=== PATIENT | male | born 1960 | race Caucasian/White ===

== ENCOUNTER → 2025-06-28 | Outpatient (CLI) | payer MEDICARE, BC, SELFPAY ==
--- NOTE | 2025-06-28 08:00 | XR_ITS ---
Examination: CT chest, without intravenous contrast. Sagittal and coronal 2-D reconstructions. Exam date and time: June 28, 2025 0746 hours INDICATIONS: Coughing shortness of breath beginning 2 years ago, history Covid infection, history coccidiomycosis CTDI:vol (mGy) 16.9 DLP: (mGycm) 695 Technique: Multiple 3.0 mm axial sections of the chest to been obtained. Bone and lung density settings are obtained. Sagittal and coronal 2-D reconstructions have been obtained. Low dose protocols were performed. One or more of the following dose reduction techniques were used; automated exposure control, adjustment of the mA and/or KV according to patient size, use of iterative reconstruction technique. Findings: Thoracic aortic calcification no aneurysmal dilatation Enlargement main pulmonary artery segment 38 mm Prominent calcification left main left anterior descending left circumflex right coronary arteries Moderate enlargement cardiac contour Vascular congestion 5 mm pulmonary nodule right upper lobe Consolidation left base consistent with pneumonia Small bilateral pleural effusions Liver is mildly irregular in contour Trace ascites Spleen is not enlarged No pancreatic mass Moderate thoracic spondylosis IMPRESSION: Pulmonary artery hypertension pattern Heavy calcification left main left anterior descending coronary artery Vascular congestion. 5 mm pulmonary nodule right upper lobe, with this study as baseline recommend 6 month follow-up CT chest without contrast Left base pneumonia Suspect primary hepatocellular disease
== END | disposition home or self-care (01) ==
LOC: CCTX 07:31
PROVIDERS: PCP Internal Medicine; Referring Provider Internal Medicine; Visit Provider Internal Medicine
DX: Z12.2 Encounter for screening for malignant neoplasm of respiratory organs (principal); I27.21 Secondary pulmonary arterial hypertension; I25.10 Atherosclerotic heart disease of native coronary artery without angina pectoris; R09.89 Other specified symptoms and signs involving the circulatory and respiratory systems; R91.1 Solitary pulmonary nodule; J18.9 Pneumonia, unspecified organism
CPT/HCPCS: 71250

== ENCOUNTER 2025-07-12 07:13 | Outpatient (CLI) | payer MEDICARE, BC, SELFPAY ==
[2025-07-06 11:11] VITALS: BMI 20.6
[2025-07-09 08:11] LABS: Blood Urea Nitrogen 13 mg/dL (9-23); Creatinine (Component) 0.8 mg/dL (0.6-1.3); Estimated Creatinine Clearance 94.9 mL/min (>60); eGFR > 60 See Note
[2025-07-09 08:27] LABS: Basophils # (Auto) 0.1 Thou/mm3 (0.0-0.2); Basophils % (Auto) 1 % (0-2.5); Eosinophils # (Auto) 0.2 Thou/mm3 (0.0-0.5); Eosinophils % (Auto) 4 % (0-10); Hematocrit 42.6 % (41.0-53.0); Hemoglobin 13.7 g/dL (13.5-16.0); Immature Granulocytes Auto 0.02 Thou/mm3 (0.00-0.00); Lymphocytes # (Auto) 1.3 Thou/mm3 (1.0-4.8); Lymphocytes % (Auto) 22 % (10-50); Mean Corpuscular HGB Conc 32.2 g/dl (31.0-37.0); Mean Corpuscular Hemoglobin 31.3 pg (25.0-35.0); Mean Corpuscular Volume 97 fL (80-100); Monocytes # (Auto) 0.5 Thou/mm3 (0.0-0.8); Monocytes % (Auto) 9 % (0-12); Neutrophils # (Auto) 3.9 Thou/mm3 (1.8-7.7); Neutrophils % (Auto) 64 % (37-80); Nucleated Red Blood Cell # 0.00 Thou/mm3 (0.00-0.00); Nucleated Red Blood Cell % 0 /100 WBC (0); Platelet Count 156 Thou/mm3 (140-440); RDW Standard Deviation 58.8 fL (35.1-43.9); Red Blood Count 4.38 Miln/mm3 (4.50-5.90); White Blood Count 6.1 Thou/mm3 (3.8-10.6)
[2025-07-09 08:37] LABS: INR 1.1 (0.9-1.3); Partial Thromboplastin Time 26.5 Seconds (22.0-36.0); Prothrombin Time 11.6 Seconds (9.0-12.2)
[2025-07-12] VITALS (18 sets, daily range): BP systolic 141–173; BP diastolic 54–85; PULSE 38–48; RESP 12–24; TEMP 36.6–36.9; O2SAT 91–95
--- NOTE | 2025-07-12 08:30 | XR_ITS ---
Examination: CT-guided percutaneous medical renal biopsy right kidney CT abdomen without intravenous contrast Date and time of procedure: July 12, 2025 0938 hours INDICATIONS: Proteinuria unspecified Informed consent provided. A timeout was completed verifying correct patient, procedure, site and positioning. Technique: Axial 3 mm sections were obtained for localization of the lower pole right kidney Appropriate area is marked. The patient's site was prepped and draped in sterile fashion Maximal sterile barrier technique utilized, including hand hygiene Local anesthesia was obtained with 1% lidocaine. Low dose protocols were performed. One or more of the following dose reduction techniques were used; automated exposure control, adjustment of the mA and/or KV according to patient size, use of iterative reconstruction technique. Utilizing CT fluoroscopic guidance 2 core biopsies of the lower pole right kidney obtained with an 18-gauge core needle Patient appears in stable condition during this procedure. At completion of the procedure, the patient is in satisfactory condition. Estimated blood loss 4 cc Complete pathology report to follow. Impression: Successful CT-guided percutaneous medical renal biopsy right kidney
[2025-07-12] MEDS: fentaNYL CIT INJ 50 mCg/ML AMP 2ML 75 MCG IVP (09:58)
--- NOTE | 2025-07-12 10:13 | PC.NURSE ---
1013 patient is awake, alert, breathing unlabored, s/p medical kidney biopsy, dressing dry with no bleeding, pt has asymptomtic bradycardia.
--- NOTE | 2025-07-12 11:14 | PC.NURSE ---
Addendum entered by Leslee Membreno RN 07/12/25 15:15: Dr Dodge Made aware of current HR and Dr. Diamond's recommendations Original Note: Patient remains with HR in high 30s-40s and asymptomatic. Dr. Sharan Diamond office called and MD stated to keep patient in recovery and he will assess patient, no need to send patient to ER.
--- NOTE | 2025-07-12 12:44 | PC.NURSE ---
Dr. Lobo manzano MD stated to stop metoprolol and see patient in 1 week, 12 lead EKG ordered .ok to discharge patient home
--- NOTE | 2025-07-12 15:16 | PC.NURSE ---
132 patient is awake, alert, breathing unlabored, able to ambulate to bathroom and void, able to tolerate fluids with no nausea or vomiting, pt does not want to eat lunch tray at this time. 12 lead EKG completed, patient educated to stop metoprolol and to call Dr. Diamond's office to make appointment and follow up with coil placer next week.patient also educated to go to ER if symptomatic bradycardia develops at any time. Patient and verbalize understanding of discharge instructions. Pt states that he was also recovering from pneumonia he had about a month ago, he already completed medication treatment
== END 2025-07-12 13:25 | disposition home or self-care (01) ==
PROVIDERS: Radiology Diagnostic Radiology; PCP Internal Medicine; Referring Provider Internal Medicine; Visit Provider Internal Medicine
DX: I12.9 Hypertensive chronic kidney disease with stage 1 through stage 4 chronic kidney disease, or unspecified chronic kidney disease (principal); N18.9 Chronic kidney disease, unspecified; N05.9 Unspecified nephritic syndrome with unspecified morphologic changes; Z01.812 Encounter for preprocedural laboratory examination
CPT/HCPCS: 50200; 36415; 77012; 82565; 84520; 85025; 85610; 85730; J3010

== ENCOUNTER 2025-08-28 06:36 | Day surgery (SDC) | payer MEDICARE, BC, SELFPAY ==
[2025-08-24 13:36] VITALS: BMI 33.1
--- NOTE | 2025-08-27 07:00 | EKG_ITS ---
[facility] Test Date: 2025-08-27 Pat Name: REESE CHAVEZ Department: Room: - Gender: Male Family Resource Specialist: DORIReyes : 1960 Requested By: Sharan Haywood Order Number: [id number] Reading MD: Sharan Haywood Measurements Intervals [place] Rate: 39 P: [place]: QRS: 71 QRSD: 156 T: 207 QT: 470 QTc: 383 Interpretive Statements ATRIAL FIBRILLATION WITH SLOW VENTRICULAR RESPONSE INTRAVENTRICULAR CONDUCTION DELAY [130+ ms QRS DURATION] No previous ECG available for comparison /store/S0/[id number].pdf
[2025-08-27 09:07] LABS: Basophils # (Auto) 0.1 Thou/mm3 (0.0-0.2); Basophils % (Auto) 1 % (0-2.5); Eosinophils # (Auto) 0.3 Thou/mm3 (0.0-0.5); Eosinophils % (Auto) 4 % (0-10); Hematocrit 45.4 % (41.0-53.0); Hemoglobin 14.5 g/dL (13.5-16.0); Immature Granulocytes Auto 0.02 Thou/mm3 (0.00-0.00); Lymphocytes # (Auto) 1.8 Thou/mm3 (1.0-4.8); Lymphocytes % (Auto) 30 % (10-50); Mean Corpuscular HGB Conc 31.9 g/dl (31.0-37.0); Mean Corpuscular Hemoglobin 30.6 pg (25.0-35.0); Mean Corpuscular Volume 96 fL (80-100); Monocytes # (Auto) 0.7 Thou/mm3 (0.0-0.8); Monocytes % (Auto) 11 % (0-12); Neutrophils # (Auto) 3.3 Thou/mm3 (1.8-7.7); Neutrophils % (Auto) 54 % (37-80); Nucleated Red Blood Cell # 0.00 Thou/mm3 (0.00-0.00); Nucleated Red Blood Cell % 0 /100 WBC (0); Platelet Count 165 Thou/mm3 (140-440); RDW Standard Deviation 53.2 fL (35.1-43.9); Red Blood Count 4.74 Miln/mm3 (4.50-5.90); White Blood Count 6.2 Thou/mm3 (3.8-10.6)
[2025-08-27 09:14] LABS: INR 1.0 (0.9-1.3); Partial Thromboplastin Time 24.9 Seconds (22.0-36.0); Prothrombin Time 10.5 Seconds (9.0-12.2)
[2025-08-27 09:15] LABS: Anion Gap 6 (7-16); BUN/Creatinine Ratio 18 Ratio (12-20); Blood Urea Nitrogen 16 mg/dL (9-23); Calcium 10.1 mg/dL (8.3-10.6); Carbon Dioxide 30.6 mMol/L (20.0-31.0); Chloride 108 mMol/L (98-107); Creatinine (Component) 0.9 mg/dL (0.6-1.3); Estimated Creatinine Clearance 111.3 mL/min (>60); Glucose 115 mg/dL (74-106); Osmolality,Calculated 290 (275-295); Potassium 4.6 mMol/L (3.4-5.1); Sodium 145 mMol/L (136-145); eGFR > 60 See Note
[2025-08-28] VITALS (19 sets, daily range): BP systolic 133–161; BP diastolic 52–92; PULSE 34–52; RESP 12–20; TEMP 36.6–37.5; O2SAT 92–98
--- NOTE | 2025-08-28 10:13 | PC.NURSE ---
Addendum entered by Leslee Membreno RN 08/28/25 10:50: correction: 09 Patient has asymptomatic bradycardia, Dr. Diamond aware, no new orders made, home medication Metoprolol has already been stopped Original Note: 09 patient is awake, alert, breathing unlabored, s/p LHC and RHC, dressing to right groin dry with no bleeding or hematoma. Heart rate in 30's to 40's (33 to 45), Dr. Diamond made aware, no new orders made at this time, patient will stop metoprolol home medication. Report received from Romana QUEZADA, patient to recover for 4 hours. 0930 patient eating food tray 0945 patient ate 50% food tray, no nausea or vomiting.
--- NOTE | 2025-08-28 11:49 | PC.NURSE ---
patient ate 50% lunch tray, tolerated well with no nausea or vomiting
--- NOTE | 2025-08-28 12:09 | PC.NURSE ---
1150 Dr. Diamond at bedside, aware of low HR, will monitor patient 5 hours instead of 4
--- NOTE | 2025-08-28 13:48 | ESOP_ITS ---
RE: REESE CHAVEZ : 1960 DATE OF OPERATION: 08/28/2025 PROCEDURES PERFORMED: 1. Diagnostic right and left heart cardiac catheterization, selective coronary angiogram, and left ventricular angiogram, CPT code 20133. 2. Iliofemoral angiogram. 3. Conscious sedation, 1-hour duration. 4. Ultrasound-guided access, right femoral artery and femoral vein. 5. Selective cannulation of the left internal mammary artery and left internal mammary artery angiogram. cpt 62233 DIAGNOSES: Recurrent shortness of breath, abnormal nuclear stress test, congestive heart failure, ischemic cardiomyopathy status post bypass graft surgery with abnormal nuclear scan. HISTORY AND INDICATIONS: The patient is a 65-year-old male with a past medical history of CAD, status post bypass graft surgery and ischemic cardiomyopathy, heart failure, progressive shortness of breath, and congestive heart failure symptoms despite maximum medical management. He has atrial flutter and fibrillation, chronic. Nuclear scan is abnormal. Because of persistent shortness of breath, congestive heart failure symptoms, and abnormal nuclear scan, right and left heart cardiac catheterization with coronary angiogram and bypass graft angiogram was recommended for assessment of coronary artery disease and assessment of bypass grafts. DESCRIPTION OF PROCEDURE: The patient was brought to the cardiac catheterization laboratory where he was given 2 mg of Versed and 50 mcg of fentanyl for conscious sedation. Right femoral approach was taken. Right femoral artery was cannulated with micropuncture techniques. Ultrasound guidance was used and a 5-British sheath was introduced. The right femoral vein was cannulated by micropuncture technique. A 7-British sheath was introduced. Right heart catheterization was performed with a Sanders-Julio catheter. Right heart pressures were measured. Left heart catheterization was performed with a 5-British pigtail catheter. Left ventricular angiogram was performed. Subsequently, selective right and left coronary angiogram was performed using FR4 and JL4 diagnostic catheters. Subsequently, an FR4 diagnostic catheter was used to cannulate the left internal mammary artery. Left internal mammary artery angiogram was performed. Subsequently, a vein bypass graft angiogram was performed with an FR4 diagnostic catheter. The patient tolerated the procedure well. There were no complications. Coronary angiogram showed the following findings. The [place] right coronary artery is totally occluded in the mid segment. The distal vessel is filling via collaterals from the [place] circumflex artery and the bypass graft to the circumflex artery. There is no vein graft to the right coronary artery. Left coronary system: The left main coronary artery showed 99% distal left main coronary stenosis, and the left anterior descending artery is totally occluded in the proximal segment. There is one obtuse marginal branch seen well. There is also a posterolateral branch. The distal circumflex artery gives a small posterolateral branch and connects to the distal RCA via collaterals with excellent filling of the mid and distal RCA. There is a vein graft to the circumflex artery, which is a very large vein graft gives off two posterolateral branches with excellent flow. The left internal mammary artery to the left anterior descending artery is widely patent with excellent distal flow. HEMODYNAMICS: Right atrial pressure is found to be at 6 mmHg. Right ventricle pressure is 46/10 mmHg. Pulmonary artery pressure is 53/29 mmHg, with a mean of 37 mmHg. Pulmonary artery wedge pressure mean is 25 mmHg. Left ventricular pressure is 127/18 mmHg, EDP is 19 mmHg. Aortic pressure is 127/65 mmHg. There is no gradient across the aortic valve. Left ventricular angiogram showed evidence of mild LV dysfunction and posterior basal hypokinesis. Left ventricular ejection fraction appears to be 45-50%. SUMMARY OF FINDINGS AND SUGGESTIONS: 1. Abnormal hemodynamics with elevated group 2 pulmonary artery hypertension. PA pressure mean is 37 mmHg, PA systolic is 53 mmHg, with elevated pulmonary artery wedge pressure. 2. Elevated pulmonary artery wedge pressure and left ventricular filling pressure due to congestive heart failure, preserved ejection fraction of 45-50%. 3. Chronically occluded right coronary artery with no bypass graft revascularization, filling via collaterals. 4. Widely patent graft from the left internal mammary artery to the left anterior descending artery. 5. Widely patent circumflex artery bypass graft, large graft with several branches. RECOMMENDATIONS: The patient is recommended maximum medical management, diuretic therapy, and optimal guideline-directed medical management for HFpEF. The patient also has atrial fibrillation with a very slow heart rate despite not having beta-blockers. If he gets symptomatic or pauses, may require pacemaker implantation. DT: 13:14:33 TT: 13:47:00 Ref: [id number] - TID: [id number] MTDD
--- NOTE | 2025-08-28 15:19 | PC.NURSE ---
1304 patient is awake, alert, breathing unlabored, dressing to right groin dry with no bleeding or hematoma. Report given to Dee QUEZADA 1331 Report received from Dee QUEZADA, right groin dressing remains clean, dry and intact. 1402 patient is awake, alert, breathing unlabored, able to tolerate food tray with no nausea or vomiting, able to void with no difficulties, patient has asymptomatic bradycardia, Dr. Diamond aware, ok to discharge patient home, HR within pre op parameters which was 46 and is currently 43. Plan is for patient to make follow up appointment with Dr. Diamond for consult of possible pacemaker insertion. Discharge instructions given, patient discharged home in wheelchair with all belongings. Patient and aware patient is to continue to hold metoprolol and not take it due to low Heart rate.
== END 2025-08-28 14:02 | disposition home or self-care (01) ==
PROVIDERS: Referring Provider Internal Medicine Cardiovascular Disease; Visit Provider Internal Medicine Cardiovascular Disease
PROC: (CPT 93461; principal; 2025-08-28 07:30)
DX: I25.5 Ischemic cardiomyopathy (principal); Z95.1 Presence of aortocoronary bypass graft; I27.21 Secondary pulmonary arterial hypertension; Z01.810 Encounter for preprocedural cardiovascular examination; I48.92 Unspecified atrial flutter; I48.20 Chronic atrial fibrillation, unspecified; I11.0 Hypertensive heart disease with heart failure; I50.9 Heart failure, unspecified; E78.00 Pure hypercholesterolemia, unspecified
CPT/HCPCS: 93461; G0278; 36415; 80048; 85025; 85610; 85730; 93005; 99152; 99153; A4649; C1725; C1769; C1894; J0168; J0461; J1643; J2250; J2312; J2371; J3010; J3490; Q9967; J2305

== ENCOUNTER 2025-09-12 06:39 | Day surgery (SDC) | payer MEDICARE, BC, SELFPAY ==
--- NOTE | 2025-09-11 07:00 | EKG_ITS ---
[facility] Test Date: 2025-09-11 Pat Name: REESE CHAVEZ Department: Room: - Gender: Male Rn Forensic: RTNAOMI : 1960 Requested By: Sharan Haywood Order Number: [id number] Reading MD: Sharan Haywood Measurements Intervals [place] Rate: 46 P: [place]: QRS: 139 QRSD: 158 T: 204 QT: 474 QTc: 418 Interpretive Statements ATRIAL FIBRILLATION WITH SLOW VENTRICULAR RESPONSE MARKED RIGHT AXIS DEVIATION [QRS AXIS > 100] INTRAVENTRICULAR CONDUCTION DELAY [130+ ms QRS DURATION] Compared to ECG 08/27/2025 07:15:56 Right-axis deviation now present /store/S0/[id number]/[id number].pdf
[2025-09-11 08:09] LABS: Basophils # (Auto) 0.1 Thou/mm3 (0.0-0.2); Basophils % (Auto) 1 % (0-2.5); Eosinophils # (Auto) 0.3 Thou/mm3 (0.0-0.5); Eosinophils % (Auto) 4 % (0-10); Hematocrit 44.3 % (41.0-53.0); Hemoglobin 14.5 g/dL (13.5-16.0); Immature Granulocytes Auto 0.03 Thou/mm3 (0.00-0.00); Lymphocytes # (Auto) 1.8 Thou/mm3 (1.0-4.8); Lymphocytes % (Auto) 24 % (10-50); Mean Corpuscular HGB Conc 32.7 g/dl (31.0-37.0); Mean Corpuscular Hemoglobin 31.3 pg (25.0-35.0); Mean Corpuscular Volume 96 fL (80-100); Monocytes # (Auto) 0.9 Thou/mm3 (0.0-0.8); Monocytes % (Auto) 11 % (0-12); Neutrophils # (Auto) 4.6 Thou/mm3 (1.8-7.7); Neutrophils % (Auto) 60 % (37-80); Nucleated Red Blood Cell # 0.00 Thou/mm3 (0.00-0.00); Nucleated Red Blood Cell % 0 /100 WBC (0); Platelet Count 164 Thou/mm3 (140-440); RDW Standard Deviation 54.4 fL (35.1-43.9); Red Blood Count 4.64 Miln/mm3 (4.50-5.90); White Blood Count 7.6 Thou/mm3 (3.8-10.6)
[2025-09-11 08:21] LABS: Anion Gap 8 (7-16); BUN/Creatinine Ratio 17 Ratio (12-20); Blood Urea Nitrogen 17 mg/dL (9-23); Calcium 9.6 mg/dL (8.3-10.6); Carbon Dioxide 28.1 mMol/L (20.0-31.0); Chloride 105 mMol/L (98-107); Creatinine (Component) 1.0 mg/dL (0.6-1.3); Glucose 125 mg/dL (74-106); Osmolality,Calculated 283 (275-295); Potassium 5.2 mMol/L (3.4-5.1); Sodium 141 mMol/L (136-145); eGFR > 60 See Note
[2025-09-11 08:38] LABS: INR 1.0 (0.9-1.3); Partial Thromboplastin Time 26.8 Seconds (22.0-36.0); Prothrombin Time 10.3 Seconds (9.0-12.2)
[2025-09-12] VITALS (12 sets, daily range): BP systolic 115–162; BP diastolic 55–84; PULSE 48–59; RESP 15–23; TEMP 36.6–37.3; O2SAT 92–95; BMI 33.9
--- NOTE | 2025-09-12 09:13 | XR_ITS ---
EXAMINATION: AP chest single view TECHNIQUE: AP upright portable chest single view Date and time: September 12, 2025, 0935 hours INDICATIONS: Post pacemaker insertion FINDINGS: Unipolar ventricular lead noted, satisfactory alignment Moderate vascular congestion No pneumothorax IMPRESSION: Cardiac lead satisfactory position
[2025-09-12] MEDS: VANCOMYCIN/NS 1 GM IVPB 200 ML IV (09:35)
[2025-09-12] MEDS: HYDROcodone/APAP 5/325 TABLET 1 TAB PO (11:16)
--- NOTE | 2025-09-12 12:15 | PC.NURSE ---
0921 patient is awake, alert, breathing unlabored, dressing to left chest dry with no bleeding, report received from Romana QUEZADA, patient to recover for 2 hours and have arm sling put on, chest xray done and 1g vanco completed before discharge. OK to resume aspirin wednesday, discontinue plavix. follow up 7 days to remove glenis. 0932 chest xray completed 0935 vanco antibiotic started 1007 pt voided 250ml via urinal 1020 chest xray shows no pneumo 1115 patient starting to have pain, norco pain pill given 1147 Patient is awake, alert, breathing unlabored, dressing to left chest dry with no bleeding, chest xray completed with no pneumothorax showing on report, arm sling applied, patient educated to use arm sling for 24 hours. vancomycin antibiotic completed. Pt voided additional 150ml urine total of 400ml in urinal. patient tolerated breakfast tray with no nausea or vomiting. Patient still having mild pain but tolerable and starting to go down. patient meets discharge criteria, discharge instructions given to patient and , patient discharged home in wheelchair with all belongings.
--- NOTE | 2025-09-17 09:05 | ESOP_ITS ---
RE: REESE CHAVEZ : 1960 DATE OF OPERATION: 09/12/2025 PROCEDURES PERFORMED: 1. Implantation of automatic implantable cardioverter defibrillator (AICD), CPT 49903. 2. Unsuccessful attempt to place left ventricle lead in lateral cardiac vein, CPT 32446. 3. Ultrasound-guided access and fluoroscopy access, left subclavian and subclavian venogram. 4. Coronary sinus venogram and cannulation of the coronary sinus. 5. Conscious sedation 2 hour duration. DIAGNOSES: Ischemic cardiomyopathy, chronic systolic heart failure, ventricular dysrhythmias, episodes of nonsustained ventricular tachycardia, high risk for sudden cardiac , ejection fraction of 25%. HISTORY AND INDICATIONS: The patient is a 65-year-old male with a past medical history of longstanding ischemic heart disease; CAD, status post bypass graft surgery, ischemic cardiomyopathy developed congestive heart failure symptoms, previous bypass graft surgery more than 5 years ago and history of congestive heart failure ejection fraction is 25%, NYHA functional class 3 congestive heart failure symptoms, had coronary bypass graft angiogram showed right coronary artery bypass graft was not bypassed. No revascularization lesions. Patient had ejection fraction 25 percent, remained heart failure symptoms. EKG showed left bundle branch block with wide QRS duration 150 millisecond duration class 1 indication for ICD implantation because of ventricular dysrhythmias, episodes of ventricular tachycardia as well as atrial fibrillation. Hence [employer] device placement was also recommended. PROCEDURE IN DETAIL: Patient was brought to operating room cardiac catheterization laboratory where he was given conscious sedation 2 mg Versed and 100 mcg of fentanyl for sedation. Patient informed consent was obtained. Left subclavian area was prepared in sterile fashion and 1% Xylocaine local anesthesia was given. The left subclavian venogram was performed, patent vena cava as well as innominate veins were seen. Selective cannulation of the left subclavian performed by X-ray guidance as well as venogram guidance. Two guidewires were introduced. Linear incision was made and with the blunt dissection, pocket was created. Subsequently a 7-[place]izen [place] sheath was introduced and a 7-[place] high-voltage lead by [employer] was advanced into the right ventricle apex. Threshold was found to be satisfactory. After obtaining satisfactory threshold, the lead was anchored to the pectoral fascia using 2-0 silk suture. Subsequently, coronary sinus was then cannulated using a guiding catheter. Coronary sinus venogram was performed and the venogram showed there were small veins and large posterolateral vein, small lateral cardiac veins were seen isolated. A 0.014 guidewire was placed in the vein branch of the obtuse marginal branches, but [employer] lead was then advanced. I was unable to place because too small a vein. Attempts were made to do in posterolateral vein, which is however not the ideal, but again there was tortuosity, unable to successfully place the lead. I felt that the lateral cardiac vein could not be placed at this time hence ICD implantation was then performed. A single chamber automatic implantable cardioverter defibrillator by [employer] was attached to the lead and positioned in the pocket successfully. Secured to the fascia with 2-0 silk suture. Wound was cleansed with antibiotic solution. Subcutaneous tissue closed with 2-0 chromic continuous suture. Skin was closed using glenis. Patient tolerated the operation very well. No complications. Pre-op antibiotic Ancef was given and post-op 500 mg vancomycin was given. SUMMARY: 1. Successful implantation of single chamber automatic implantable cardioverter defibrillator. 2. Unsuccessful placement of left ventricle lead in lateral cardiac vein. COMPLICATIONS: None. ESTIMATED BLOOD LOSS: Less than 10 mL. DT: 08:44:49 TT: 09:04:00 Ref: [id number] - TID: [id number] [facility]
== END 2025-09-12 11:47 | disposition home or self-care (01) ==
PROVIDERS: PCP Internal Medicine; Referring Provider Internal Medicine Cardiovascular Disease; Visit Provider Internal Medicine Cardiovascular Disease
PROC: 0JH608Z Insertion of Defibrillator Generator into Chest Subcutaneous Tissue and Fascia, Open Approach (ICD-10-PCS; CPT 33249; principal; 2025-09-12 07:15)
DX: I11.0 Hypertensive heart disease with heart failure (principal); I50.22 Chronic systolic (congestive) heart failure; I25.5 Ischemic cardiomyopathy; Z95.1 Presence of aortocoronary bypass graft; I25.10 Atherosclerotic heart disease of native coronary artery without angina pectoris; Z01.810 Encounter for preprocedural cardiovascular examination; I44.7 Left bundle-branch block, unspecified; I47.20 Ventricular tachycardia, unspecified; I48.91 Unspecified atrial fibrillation; I49.5 Sick sinus syndrome; E78.00 Pure hypercholesterolemia, unspecified; Z95.5 Presence of coronary angioplasty implant and graft
CPT/HCPCS: 33249; 36415; 80048; 85025; 85610; 85730; 93005; 99152; 99153; A4565; A4649; C1769; C1777; C1882; C1894; J0168; J0461; J0689; J1643; J2250; J2312; J2371; J3010; J3373; J3490; Q9967; A9270